=== PATIENT | male | born 1955 | race Asian ===

== ENCOUNTER 2023-02-03 03:13 | Emergency (ER) | payer OTHER, MEDICARE ==
[~2023-02-03] VITALS: Ht 165.1 cm; Wt 82.0 kg
[2023-02-03] MEDS ORDERED: IOHEXOL 350 MG/ML 100 ML VIAL ONE (03:25)
[2023-02-03] MEDS ORDERED: SODIUM CHLORIDE 0.9% 100 ML ONE (03:25)
[2023-02-03] MEDS ORDERED: LABETALOL HCL 5 MG/ML 20 ML VIAL IVP PRN ×2 (03:30)
[2023-02-03 03:55] LABS: BASOPHILS % (AUTO) 0.5 % (0.0-2.0); EOSINOPHILS % (AUTO) 0.4 % (1.0-6.0); HEMATOCRIT 36.2 % (41-53); HEMOGLOBIN 12.8 g/dL (13.5-17.5); LYMPHOCYTES # (AUTO) 0.9 K/uL (1.0-4.8); LYMPHOCYTES % (AUTO) 18.6 % (22.0-44.0); MEAN CORPUSCULAR HEMOGLOBIN 33.5 pg (26.0-34.0); MEAN CORPUSCULAR HGB CONC 35.3 G/dL (31.0-37.0); MEAN CORPUSCULAR VOLUME 95 fL (80-100); MONOCYTES % (AUTO) 20.5 % (2.0-9.0); NEUTROPHILS # (AUTO) 2.9 K/uL (1.8-7.7); PLATELET COUNT (AUTO) 187 K/uL (150-450); RED BLOOD CELL COUNT(AUTO) 3.82 MIL/uL (4.50-5.90); RED CELL DISTRIBUTION WIDTH 12.6 % (11.5-14.5); WHITE BLOOD COUNT (AUTO) 4.8 K/uL (4.5-11.0)
[2023-02-03] MEDS ORDERED: LISI-657 PO (03:56)
[2023-02-03 04:00] LABS: INR 1.1 (0.9-1.1); PROTHROMBIN TIME 11.3 SEC (9.4-11.6)
[2023-02-03 04:03] LABS: TROPONIN I-HIGH SENSITIVITY 6 ng/L (<76)
[2023-02-03] MEDS ORDERED: SODIUM CHLORIDE 0.9% 50 ML IV ONE ×2 (04:15→04:30)
[2023-02-03] MEDS ORDERED: ALTEPLASE PER STROKE PROTOCOL CLINICAL ONE (04:15)
[2023-02-03 04:20] LABS: ALANINE AMINOTRANSFERASE 32 U/L (12-78); ALBUMIN 3.1 g/dL (3.4-5.0); ALKALINE PHOSPHATASE 53 U/L (46-116); ANION GAP 5 mmol/L (8-16); ASPARTATE AMINOTRANSFERASE 22 U/L (15-37); BILIRUBIN,TOTAL 0.4 mg/dL (0.1-1.0); CALCIUM, TOTAL 7.9 mg/dL (8.8-10.5); CARBON DIOXIDE 26 mmol/L (22-29); CHLORIDE 94 mmol/L (98-107); CREATININE 0.76 mg/dL (0.60-1.30); GLOMERULAR FILTR. RATE CALC > 60 mL/min (>60); GLUCOSE,RANDOM 163 mg/dL (70-110); POTASSIUM 3.5 mmol/L (3.5-5.1); SODIUM SERUM 125 mmol/L (136-145); TOTAL PROTEIN, SERUM 6.8 g/dL (6.4-8.2); UREA NITROGEN, BLOOD 12 mg/dL (7-18)
[2023-02-03 04:30] LABS: PH,URINE DRUG SCREEN 5.5 (5.0-8.0)
[2023-02-03] MEDS ORDERED: WATER FOR INJECTION STERILE IV ONE ×2 (04:30→04:35)
[2023-02-03] MEDS ORDERED: ALTEPLASE IV ONE ×2 (04:30→04:35)
[2023-02-03 04:35] LABS: ALCOHOL, URINE DRUG SCREEN NEGATIVE (NEGATIVE); AMPHET/METH SCREEN,URINE NEGATIVE (NEGATIVE); BARBITURATE SCREEN, URINE NEGATIVE (NEGATIVE); BENZODIAZEPINES SCREEN,URINE NEGATIVE (NEGATIVE); CANNABINOID SCREEN,URINE NEGATIVE (NEGATIVE); COCAINE SCREEN,URINE NEGATIVE (NEGATIVE); METHADONE SCREEN, URINE NEGATIVE (NEGATIVE); OPIATE SCREEN,URINE NEGATIVE (NEGATIVE); PHENCYCLIDINE SCREEN,URINE NEGATIVE (NEGATIVE)
[2023-02-03 05:50] LABS: APPEARANCE,URINE CLEAR (CLEAR); BILIRUBIN,URINE NEGATIVE (NEGATIVE); COLOR,URINE LIGHT YELLOW (YELLOW); GLUCOSE, URINE (UA) NEGATIVE (NEGATIVE); KETONES,URINE NEGATIVE (NEGATIVE); LEUKOCYTE ESTERASE ,URINE NEGATIVE (NEGATIVE); NITRATE,URINE NEGATIVE (NEGATIVE); OCCULT BLOOD,URINE NEGATIVE (NEGATIVE); PH,URINE 5.5 (5.0-8.0); PROTEIN,URINE TRACE mg/dL (NEGATIVE); SPECIFIC GRAVITIY, URINE 1.037 (1.003-1.030); UROBILINOGEN,URINE <=1.0 mg/dL (<=1.0)
[2023-02-03 06:08] LABS: BACTERIA,URINE None Seen /HPF (None Seen); RBC,URINE None Seen /HPF (0-2); SQUAMOUS EPITHELIAL CELL,UR Few /LPF (None Seen); WBC,URINE None Seen /HPF (0-5)
[2023-02-03 06:32] VITALS: BP 135/91; PULSE 72; RESP 26; TEMP 99.3
== END 2023-02-03 07:13 | disposition short-term general hospital (02) ==
LOC: EMS 03:14
DX: I63.9 Cerebral infarction, unspecified (principal); I67.89 Other cerebrovascular disease
CPT/HCPCS: 99291; 70496; 71045; 80053; 81001; 84484; 85025; 85610; 85730; 86850; 86900; 86901; 36415; 70498; 99292; 82948; 93005; 80307; 70450; J2997; Q9967; J7050 ×2

== ENCOUNTER 2025-01-15 11:41 | Inpatient (IN) | payer MEDICARE, MEDICAID ==
[~2025-01-15] VITALS: Ht 167.6 cm; Wt 75.1 kg
[~2025-01-15 11:41] MED LIST: AMOX400S55 PO; ASPI-1450 GT; ATOR40TA28 GT; BISA10SU11 PR; ESOM20SU2 GT; FAMO20 GT; LACO10SO12 GT; LEVE100S7 GT; LISI-657 GT; MENT71OI TP; SCOP1PAT12 TD; SENN8.8S31 GT; VALP250S23 GT
[2025-01-15] MEDS: MIDAZOLAM HCL 5 MG/ML VIAL IVP ONE ×2 (11:54→13:34)
[2025-01-15] MEDS ORDERED: 0.9% SODIUM CHLORIDE 10 ML SYRINGE IVP PRN (12:00)
[2025-01-15] MEDS: SODIUM CHLORIDE 0.9% 2,000 ML IV ONE (12:13)
[2025-01-15] MEDS: SODIUM CHLORIDE 0.9% 500 ML IV ONE (12:13)
[2025-01-15 12:16] LABS: PLATELET COUNT (AUTO) 359 K/uL (150-450); RED BLOOD CELL COUNT(AUTO) 3.32 MIL/uL (4.50-5.90); RED CELL DISTRIBUTION WIDTH 14.1 % (11.5-14.5); WHITE BLOOD COUNT (AUTO) 23.3 K/uL (4.5-11.0)
[2025-01-15 12:26] LABS: BAND NEUTROPHILS % (MANUAL) 22 % (0-5); LYMPHOCYTES % (MANUAL) 10 % (22-44); MONOCYTES % (MANUAL) 2 % (2-9); SEGMENTED NEUTROPHILS % 66 % (40-70)
[2025-01-15 12:27] LABS: RBC MORPHOLOGY COMMENT NORMAL RBC MORPH
[2025-01-15 12:34] LABS: LACTIC ACID 8.4 mmol/L (0.4-2.0)
[2025-01-15 12:35] LABS: CALCIUM, TOTAL 8.2 mg/dL (8.8-10.5); CREATININE 0.85 mg/dL (0.60-1.30); GLOMERULAR FILTR. RATE CALC > 60 mL/min (>60); GLUCOSE,RANDOM 228 mg/dL (70-110); SODIUM SERUM 139 mmol/L (136-145); UREA NITROGEN, BLOOD 26 mg/dL (7-18)
[2025-01-15 12:42] LABS: TROPONIN I-HIGH SENSITIVITY 100 ng/L (<76)
[2025-01-15 12:59] LABS: ABG OXYGEN CONTENT 15.4 mL/dL (15.0-23.0); ABG TOTAL HEMOGLOBIN 11.1 G/dL (13.5-17.5); SOURCE, BLOOD GAS ARTERIAL; TEMPERATURE, FAHRENHEIT, BG 102.2 FAHREN (96.0-98.6)
[2025-01-15] MEDS: NOREPINEPHRINE 8 MG/0.9 % NACL 250 ML IV PRN (12:59)
[2025-01-15 13:00] VITALS: PULSE 107; RESP 20; O2SAT 96
[2025-01-15] MEDS: PIPERACILLIN/TAZO 3.375 GM/D5W 50 ML IV ONE (13:00)
[2025-01-15 13:01] LABS: ABG BASE EXCESS -0.6 mmol/L (-2.0-3.0); ABG CARBOXYHEMOGLOBIN 0.8 % (0.5-1.5); ABG HCO3 24.1 mmol/L (21.0-28.0); ABG METHEMOGLOBIN 1.2 % (0.0-1.5); ABG OXYGEN SATURATION 98.9 % (94.0-98.0); ABG OXYHEMOGLOBIN 96.9 % (94.0-98.0); ABG PCO2 44 mmHg (32.0-48.0); ABG PH 7.372 (7.350-7.450); FRACTIONATED INSPIRED OXYGEN 100.0 % (21-100.0); PO2, ARTERIAL BG 142.1 mmHg (83.0-108.0)
[2025-01-15] MEDS: LevETIRAcetam 1,000 MG in DEXTROSE 5%-WATER 100 ML IV ONE (13:01)
[2025-01-15 13:02] LABS: ABG A-A DIFF O2 521.8 mmHg (10-20.0); ALLEN TEST, BLOOD GAS Positive; FLOW, BLOOD GAS 15.00 L/min (0.00-15.00); O2 DEVICE,BLOOD GAS BAG VALVE MASK (ROOM AIR); SITE, BLOOD GAS RT RADIAL
[2025-01-15] MEDS ORDERED: PHENYLEPHRINE HCL IN 0.9% NACL 400 MCG/10 ML SYRINGE IVP ONE (13:07)
[2025-01-15] MEDS: ACETAMINOPHEN 1000 MG/ISO-OSM 100 ML IV ONE (14:05)
[2025-01-15 14:35] LABS: ABG BASE EXCESS 0.3 mmol/L (-2.0-3.0); ABG CARBOXYHEMOGLOBIN 0.4 % (0.5-1.5); ABG HCO3 24.9 mmol/L (21.0-28.0); ABG METHEMOGLOBIN 1.1 % (0.0-1.5); ABG OXYGEN CONTENT 15.6 mL/dL (15.0-23.0); ABG OXYGEN SATURATION 99.4 % (94.0-98.0); ABG OXYHEMOGLOBIN 97.9 % (94.0-98.0); ABG PCO2 40 mmHg (32.0-48.0); ABG PH 7.416 (7.350-7.450); ABG TOTAL HEMOGLOBIN 11.1 G/dL (13.5-17.5); FRACTIONATED INSPIRED OXYGEN 65.0 % (21-100.0); PO2, ARTERIAL BG 146.6 mmHg (83.0-108.0); SOURCE, BLOOD GAS ARTERIAL; TEMPERATURE, FAHRENHEIT, BG 99.4 FAHREN (96.0-98.6)
[2025-01-15 14:36] LABS: ABG A-A DIFF O2 273.1 mmHg (10-20.0); O2 DEVICE,BLOOD GAS VENTILATOR (ROOM AIR); SITE, BLOOD GAS ARTERIAL LINE; VENT MODE, BG Press. Control Vent (ROOM AIR)
[2025-01-15] MEDS: PHENYLEPHRINE 200 MG/D5%-WATER 250 ML IV PRN (14:36)
[2025-01-15 14:39] LABS: APPEARANCE,URINE HAZY (CLEAR); GLUCOSE, URINE (UA) NEGATIVE (NEGATIVE); LEUKOCYTE ESTERASE ,URINE LARGE (NEGATIVE); NITRATE,URINE NEGATIVE (NEGATIVE); OCCULT BLOOD,URINE TRACE (NEGATIVE); SPECIFIC GRAVITIY, URINE 1.019 (1.003-1.030)
[2025-01-15] MEDS ORDERED: PHENYLEPHRINE 200 MG/D5%-WATER 250 ML IV PRN (15:00)
[2025-01-15] MEDS ORDERED: ONDANSETRON HCL 4 MG/2 ML VIAL IVP PRN (15:00)
[2025-01-15] MEDS ORDERED: VASOPRESSIN 40 UNITS in DEXTROSE 5%-WATER 98 ML IV PRN (15:00)
[2025-01-15] MEDS: ACETYLCYSTEINE 10% 100 MG/ML 4 ML NEB SOLUTION NEB SCH (15:00)
[2025-01-15] MEDS: *CLINICAL-MEROPENEM DOSING CLINICAL ONE (15:08)
[2025-01-15] MEDS ORDERED: MIDAZOLAM HCL 100 MG in SODIUM CHLORIDE 0.9% 180 ML IV PRN (15:15)
[2025-01-15] MEDS: SCOPOLAMINE HYDROBROMIDE 1 MG/72 HOUR PATCH TD SCH (15:30)
[2025-01-15] MEDS: MEROPENEM 1 GM in SODIUM CHLORIDE 0.9% 50 ML IV ONE (15:30)
[2025-01-15] MEDS: VANCOMYCIN 1.25 GM/WATER(PEG) 250 ML IV ONE (15:31)
[2025-01-15] MEDS: RINGERS SOLUTION,LACTATED 1,000 ML IV ONE (16:01)
[2025-01-15] MEDS ORDERED: PIPERACILLIN/TAZO 3.375 GM/D5W 50 ML IV SCH (18:00)
[2025-01-15] MEDS: HEPARIN SODIUM,PORCINE 5,000 UNITS/ML VIAL SQ SCH (18:01)
[2025-01-15 18:23] LABS: TROPONIN I-HIGH SENSITIVITY 141 ng/L (<76)
[2025-01-15 18:45] VITALS: PULSE 67; RESP 20; O2SAT 96; O2SAT 98
[2025-01-15 18:57] VITALS: PULSE 65; RESP 20; O2SAT 95
[2025-01-15 20:00] VITALS: BP 141/59; PULSE 69; RESP 21; TEMP 98.6; O2SAT 92
[2025-01-15 21:15] LABS: ABG BASE EXCESS 7.1 mmol/L (-2.0-3.0); ABG CARBOXYHEMOGLOBIN 0.3 % (0.5-1.5); ABG HCO3 30.1 mmol/L (21.0-28.0); ABG METHEMOGLOBIN 0.3 % (0.0-1.5); ABG OXYGEN CONTENT 14.0 mL/dL (15.0-23.0); ABG OXYGEN SATURATION 94.9 % (94.0-98.0); ABG OXYHEMOGLOBIN 94.3 % (94.0-98.0); ABG PCO2 48 mmHg (32.0-48.0); ABG PH 7.435 (7.350-7.450); ABG TOTAL HEMOGLOBIN 10.5 G/dL (13.5-17.5); FRACTIONATED INSPIRED OXYGEN 28.0 % (21-100.0); PO2, ARTERIAL BG 77.9 mmHg (83.0-108.0); SOURCE, BLOOD GAS ARTERIAL; TEMPERATURE, FAHRENHEIT, BG 98.6 FAHREN (96.0-98.6)
[2025-01-15 21:17] LABS: SITE, BLOOD GAS ART LINE
[2025-01-15 21:18] LABS: ABG A-A DIFF O2 65.5 mmHg (10-20.0)
[2025-01-15 21:21] LABS: FLOW, BLOOD GAS 7.00 L/min (0.00-15.00)
[2025-01-15] MEDS: ETHYL ALCOHOL 62% ANTISEPTIC NASAL SANITIZER 0.6 ML AMPUL NASAL SCH (21:29)
[2025-01-15] MEDS: VALPROIC ACID 250 MG/5 ML SOLUTION UDCUP GT SCH (21:29)
[2025-01-15] MEDS: CHLORHEXIDINE GLUCONATE 2% TOWELETTE [2'S/6'S] TP SCH (21:29)
[2025-01-15] MEDS: LACOSAMIDE 50 MG TABLET GT SCH (21:30)
[2025-01-15] MEDS: FAMOTIDINE 20 MG TABLET GT SCH (21:30)
[2025-01-15] MEDS: DOCUSATE SODIUM 100 MG/10 ML LIQUID UDCUP GT SCH (21:30)
[2025-01-15] MEDS: LevETIRAcetam 100 MG/ML 5 ML SOLUTION UDCUP GT SCH (21:30)
[2025-01-15] MEDS: ESOMEPRAZOLE MAG TRIHYDRATE 20 MG CAPSULE GT SCH (23:13)
[2025-01-15 23:56] VITALS: PULSE 69; RESP 20; O2SAT 94
[2025-01-15] MEDS: ALBUTEROL SULFATE 2.5 MG/0.5 ML NEB SOLUTION NEB PRN (23:56)
[2025-01-16] VITALS (19 sets, daily range): BP systolic 95–147; BP diastolic 48–87; PULSE 61–104; RESP 17–36; TEMP 96.5–99; O2SAT 91–100
[2025-01-16] MEDS: MEROPENEM 1 GM in SODIUM CHLORIDE 0.9% 50 ML IV SCH (02:41)
[2025-01-16] MEDS: NOREPINEPHRINE 8 MG/0.9 % NACL 250 ML IV PRN (04:57)
[2025-01-16 06:21] LABS: PLATELET COUNT (AUTO) 311 K/uL (150-450); RED BLOOD CELL COUNT(AUTO) 2.74 MIL/uL (4.50-5.90); RED CELL DISTRIBUTION WIDTH 14.2 % (11.5-14.5); WHITE BLOOD COUNT (AUTO) 22.6 K/uL (4.5-11.0)
[2025-01-16 06:40] LABS: CALCIUM, TOTAL 8.3 mg/dL (8.8-10.5); CREATININE 0.40 mg/dL (0.60-1.30); GLOMERULAR FILTR. RATE CALC > 60 mL/min (>60); GLUCOSE,RANDOM 129 mg/dL (70-110); SODIUM SERUM 140 mmol/L (136-145); UREA NITROGEN, BLOOD 29 mg/dL (7-18)
[2025-01-16 06:50] LABS: TROPONIN I-HIGH SENSITIVITY 64 ng/L (<76)
[2025-01-16] MEDS ORDERED: SODIUM CHLORIDE 0.9% 250 ML IV ONE (08:47)
[2025-01-16] MEDS: VANCOMYCIN 1GM/WATER(PEG/NADA) 200 ML IV SCH (08:52)
[2025-01-16] MEDS: ASPIRIN 81 MG CHEWABLE TABLET GT SCH (08:56)
[2025-01-16] MEDS: ATORVASTATIN CALCIUM 40 MG TABLET GT SCH (08:56)
[2025-01-16] MEDS: ACETAMINOPHEN 325 MG TABLET NG PRN (09:01)
[2025-01-16] MEDS: LEVOFLOXACIN 750 MG/D5% WATER 150 ML IV SCH (11:00)
[2025-01-16] MEDS ORDERED: POTASSIUM CHL 10 MEQ/WATER 50 ML IV PRN (13:15)
[2025-01-16] MEDS ORDERED: POTASSIUM CHLORIDE 20 MEQ ER TABLET PO PRN (13:15)
[2025-01-16 15:25] LABS: ABG BASE EXCESS 3.8 mmol/L (-2.0-3.0); ABG CARBOXYHEMOGLOBIN 0.3 % (0.5-1.5); ABG HCO3 27.6 mmol/L (21.0-28.0); ABG METHEMOGLOBIN 0.3 % (0.0-1.5); ABG OXYGEN CONTENT 12.9 mL/dL (15.0-23.0); ABG OXYGEN SATURATION 96.9 % (94.0-98.0); ABG OXYHEMOGLOBIN 96.3 % (94.0-98.0); ABG PCO2 39 mmHg (32.0-48.0); ABG PH 7.464 (7.350-7.450); ABG TOTAL HEMOGLOBIN 9.4 G/dL (13.5-17.5); FRACTIONATED INSPIRED OXYGEN 30.0 % (21-100.0); PO2, ARTERIAL BG 87.7 mmHg (83.0-108.0); SOURCE, BLOOD GAS ARTERIAL; TEMPERATURE, FAHRENHEIT, BG 97.1 FAHREN (96.0-98.6)
[2025-01-16 15:26] LABS: ABG A-A DIFF O2 80.7 mmHg (10-20.0); FLOW, BLOOD GAS 6.00 L/min (0.00-15.00); O2 DEVICE,BLOOD GAS TRACH COLLAR (ROOM AIR); SITE, BLOOD GAS ARTERIAL LINE
[2025-01-16] MEDS ORDERED: 0.9% SODIUM CHLORIDE 10 ML SYRINGE IVP ONE (17:22)
[2025-01-16] MEDS ORDERED: IOHEXOL 350 MG/ML 100 ML VIAL ONE (17:22)
[2025-01-16] MEDS ORDERED: SODIUM CHLORIDE 0.9% 100 ML ONE (17:22)
[2025-01-16] MEDS: POTASSIUM CHLORIDE 10% 40 MEQ/30 ML LIQUID UDCUP GT PRN (18:08)
[2025-01-17] VITALS (19 sets, daily range): BP systolic 130–156; BP diastolic 67–89; PULSE 72–103; RESP 15–30; TEMP 97–99; O2SAT 74–100
[2025-01-17 06:13] LABS: PLATELET COUNT (AUTO) 286 K/uL (150-450); RED BLOOD CELL COUNT(AUTO) 2.44 MIL/uL (4.50-5.90); RED CELL DISTRIBUTION WIDTH 14.5 % (11.5-14.5); WHITE BLOOD COUNT (AUTO) 14.9 K/uL (4.5-11.0)
[2025-01-17 06:15] LABS: CALCIUM, TOTAL 8.2 mg/dL (8.8-10.5); CREATININE 0.25 mg/dL (0.60-1.30); GLOMERULAR FILTR. RATE CALC > 60 mL/min (>60); GLUCOSE,RANDOM 103 mg/dL (70-110); SODIUM SERUM 143 mmol/L (136-145); UREA NITROGEN, BLOOD 19 mg/dL (7-18)
[2025-01-17 06:20] LABS: PHOSPHORUS 1.9 mg/dL (2.5-4.9)
[2025-01-17] MEDS ORDERED: SODIUM CHLORIDE 0.9% 500 ML IV ONE (15:54)
[2025-01-17] MEDS: VANCOMYCIN 750 MG/WATER(PEG) 150 ML IV SCH (16:18)
[2025-01-17] MEDS: TRANEXAMIC ACID 1,000 MG/10 ML VIAL IVP ONE (23:30)
[2025-01-18] VITALS (26 sets, daily range): BP systolic 125–157; BP diastolic 85–99; PULSE 56–81; RESP 16–24; TEMP 93.2–97.7; O2SAT 96–100
[2025-01-18] MEDS ORDERED: *CLINICAL-MEROPENEM DOSING CLINICAL ONE (11:15)
[2025-01-18] MEDS: *CLINICAL-MEROPENEM DOSING CLINICAL ONE (11:16)
[2025-01-18 12:28] LABS: PLATELET COUNT (AUTO) 282 K/uL (150-450); RED BLOOD CELL COUNT(AUTO) 2.11 MIL/uL (4.50-5.90); RED CELL DISTRIBUTION WIDTH 14.4 % (11.5-14.5); WHITE BLOOD COUNT (AUTO) 7.4 K/uL (4.5-11.0)
[2025-01-18 12:41] LABS: ASPARTATE AMINOTRANSFERASE 15 U/L (15-37); CALCIUM, TOTAL 8.1 mg/dL (8.8-10.5); CREATININE 0.16 mg/dL (0.60-1.30); GLOMERULAR FILTR. RATE CALC > 60 mL/min (>60); GLUCOSE,RANDOM 134 mg/dL (70-110); SODIUM SERUM 145 mmol/L (136-145); TOTAL PROTEIN, SERUM 6.2 g/dL (6.4-8.2); UREA NITROGEN, BLOOD 19 mg/dL (7-18)
[2025-01-18] MEDS: MEROPENEM 1 GM in SODIUM CHLORIDE 0.9% 50 ML IV SCH (13:12)
[2025-01-18] MEDS: SODIUM,POTASSIUM PHOSPHATES POWDER PACKET GT ONE (13:24)
[2025-01-18] MEDS ORDERED: SODIUM CHLORIDE 0.9% 500 ML IV ONE (13:52)
[2025-01-18] MEDS: SULFAMETHOX/TRIMETH 800-160 MG/20 ML SUSPENSION ORAL SYRINGE GT SCH (20:09)
[2025-01-18 20:52] LABS: PLATELET COUNT (AUTO) 277 K/uL (150-450); RED BLOOD CELL COUNT(AUTO) 2.72 MIL/uL (4.50-5.90); RED CELL DISTRIBUTION WIDTH 24.6 % (11.5-14.5); WHITE BLOOD COUNT (AUTO) 8.3 K/uL (4.5-11.0)
[2025-01-18] MEDS ORDERED: IOHEXOL 350 MG/ML 100 ML VIAL ONE (21:30)
[2025-01-18] MEDS ORDERED: SODIUM CHLORIDE 0.9% 100 ML ONE (21:30)
[2025-01-18] MEDS: POTASSIUM CHLORIDE 10% 40 MEQ/30 ML LIQUID UDCUP GT ONE (21:51)
[2025-01-19] VITALS (10 sets, daily range): BP systolic 115–135; BP diastolic 68–96; PULSE 57–74; RESP 18–20; TEMP 97.2–97.9; O2SAT 92–99
[2025-01-19 07:22] LABS: PLATELET COUNT (AUTO) 297 K/uL (150-450); RED BLOOD CELL COUNT(AUTO) 3.05 MIL/uL (4.50-5.90); RED CELL DISTRIBUTION WIDTH 25.2 % (11.5-14.5); WHITE BLOOD COUNT (AUTO) 8.1 K/uL (4.5-11.0)
[2025-01-19 07:23] LABS: RBC MORPHOLOGY COMMENT ABNORMAL RBC MORPH
[2025-01-19 07:42] LABS: CALCIUM, TOTAL 8.3 mg/dL (8.8-10.5); CREATININE 0.27 mg/dL (0.60-1.30); GLOMERULAR FILTR. RATE CALC > 60 mL/min (>60); GLUCOSE,RANDOM 115 mg/dL (70-110); SODIUM SERUM 146 mmol/L (136-145); UREA NITROGEN, BLOOD 13 mg/dL (7-18)
[2025-01-19] MEDS: BISACODYL 10 MG RECTAL RECTAL SUPPOSITORY PR PRN (18:32)
[2025-01-20] VITALS (16 sets, daily range): BP systolic 131–144; BP diastolic 86–99; PULSE 65–100; RESP 18–22; TEMP 98.1; O2SAT 93–99
[2025-01-21] VITALS (13 sets, daily range): BP systolic 136–147; BP diastolic 82–96; PULSE 75–98; RESP 18–24; TEMP 97.6–98.2; O2SAT 77–100
[2025-01-21 06:38] LABS: PLATELET COUNT (AUTO) 403 K/uL (150-450); RED BLOOD CELL COUNT(AUTO) 3.23 MIL/uL (4.50-5.90); RED CELL DISTRIBUTION WIDTH 23.2 % (11.5-14.5); WHITE BLOOD COUNT (AUTO) 8.2 K/uL (4.5-11.0)
[2025-01-21 07:23] LABS: CALCIUM, TOTAL 9.2 mg/dL (8.8-10.5); CREATININE 0.28 mg/dL (0.60-1.30); GLOMERULAR FILTR. RATE CALC > 60 mL/min (>60); GLUCOSE,RANDOM 119 mg/dL (70-110); SODIUM SERUM 138 mmol/L (136-145); UREA NITROGEN, BLOOD 11 mg/dL (7-18)
[2025-01-21 08:07] LABS: RBC MORPHOLOGY COMMENT ABNORMAL RBC MORPH
[2025-01-22] VITALS (16 sets, daily range): BP systolic 134–147; BP diastolic 93–102; PULSE 66–99; RESP 16–20; TEMP 97.9–98.6; O2SAT 94–100
[2025-01-22] MEDS ORDERED: SODIUM CHLORIDE 0.9% 500 ML IV ONE (05:49)
[2025-01-22 08:00] LABS: CALCIUM, TOTAL 9.4 mg/dL (8.8-10.5); CREATININE 0.24 mg/dL (0.60-1.30); GLOMERULAR FILTR. RATE CALC > 60 mL/min (>60); GLUCOSE,RANDOM 116 mg/dL (70-110); SODIUM SERUM 138 mmol/L (136-145); UREA NITROGEN, BLOOD 15 mg/dL (7-18)
[2025-01-23] VITALS (7 sets, daily range): BP systolic 142–144; BP diastolic 100–104; PULSE 82–99; RESP 16–20; TEMP 97.7–98.1; O2SAT 91–99
== END 2025-01-23 11:20 | disposition home health service (06) | DRG 871 ==
LOC: EMS 11:48 → EDH 14:57 → ICU 19:30 → 4E 01-17 14:04
PROVIDERS: ADMIT Internal Medicine; ATTEND Internal Medicine
PROC: 5A1935Z Respiratory Ventilation, Less than 24 Consecutive Hours (ICD-10-PCS; principal; 2025-01-15)
PROC: 4A00X4Z Measurement of Central Nervous Electrical Activity, External Approach (ICD-10-PCS; 2025-01-16)
PROC: 5A0935A Assistance with Respiratory Ventilation, Less than 24 Consecutive Hours, High Flow/Velocity Cannula (ICD-10-PCS; 2025-01-16)
PROC: 30233N1 Transfusion of Nonautologous Red Blood Cells into Peripheral Vein, Percutaneous Approach (ICD-10-PCS; 2025-01-18)
DX: A41.9 Sepsis, unspecified organism (principal); G83.5 Locked-in state; J69.0 Pneumonitis due to inhalation of food and vomit; J96.21 Acute and chronic respiratory failure with hypoxia; R65.21 Severe sepsis with septic shock; G92.8 Other toxic encephalopathy; J15.1 Pneumonia due to Pseudomonas; J91.8 Pleural effusion in other conditions classified elsewhere; N39.0 Urinary tract infection, site not specified; Z99.11 Dependence on respirator [ventilator] status; B96.89 Other specified bacterial agents as the cause of diseases classified elsewhere; D64.9 Anemia, unspecified; G40.909 Epilepsy, unspecified, not intractable, without status epilepticus; I10 Essential (primary) hypertension; I24.89 Other forms of acute ischemic heart disease; J98.11 Atelectasis; D72.829 Elevated white blood cell count, unspecified; X58.XXXA Exposure to other specified factors, initial encounter; K80.20 Calculus of gallbladder without cholecystitis without obstruction; R13.10 Dysphagia, unspecified; S20.211A Contusion of right front wall of thorax, initial encounter; Z79.82 Long term (current) use of aspirin; Z79.899 Other long term (current) drug therapy; Z93.1 Gastrostomy status; Y93.89 Activity, other specified; Y92.89 Other specified places as the place of occurrence of the external cause; Y99.8 Other external cause status
CPT/HCPCS: 36245; 36569; 36600; 71045; 71250; 71275; 76705; 76937; 78278; 80048; 80053; 80202; 81001; 82140; 82271; 82805; 83605; 83735; 83880; 84100; 84132; 84145; 84484; 85014; 85018; 85025; 85610; 86850; 86900; 86901; 86923; 87040; 87070; 87077; 87081; 87086; 87186; 87205; 93005; 93970; 94002; 94640; 95816; 96365; 99291; G0238; G0378; J0131; J0712; J1644; J1956; J2185; J2250; J2370; J2543; J3490; J7040; J7050; J7060; J7120; P9016; 36415-L1; 36415-TC; A9560; J7613